=== PATIENT | male | born 1965 | race Caucasian/White ===

== ENCOUNTER 2018-03-01 11:04 | Emergency (ER) | payer OTHER ==
[~2018-03-01] VITALS: Ht 167.6 cm; Wt 90.0 kg
[~2018-03-01 11:04] MED LIST: MUPI1OIN8 BOTHNARES
[2018-03-01 11:46] LABS: ALANINE AMINOTRANSFERASE 60 U/L (12-78); ALBUMIN 3.9 G/DL (3.4-5.0); ALKALINE PHOSPHATASE 104 IU/L (46-116); ANION GAP 10 (8-16); ASPARTATE AMINO TRANSFERASE 31 U/L (10-37); BILIRUBIN,TOTAL 0.5 MG/DL (0.1-1.0); BLOOD UREA NITROGEN 26 MG/DL (7-18); BUN/CREATININE RATIO 25.7 (5.4-32.0); CHLORIDE 101 MMOL/L (99-107); CREATININE 1.01 MG/DL (0.60-1.10); GLUCOSE 271 MG/DL (70-104); POTASSIUM 4.4 MMOL/L (3.5-5.1); SODIUM 137 MMOL/L (135-145); TOTAL CARBON DIOXIDE 25.9 MMOL/L (24-32); TOTAL PROTEIN 7.9 G/DL (6.4-8.2); eGFR 78 ML/MIN
[2018-03-01 11:48] LABS: BASOPHILS % (AUTO) 0.3 % (0-1); EOSINOPHILS # (AUTO) 0.1 X10'3 (0-0.9); EOSINOPHILS % (AUTO) 0.9 % (0-6); HEMATOCRIT 48.6 % (42.0-52.0); HEMOGLOBIN 16.7 g/dl (14.0-17.9); LYMPHOCYTES # (AUTO) 1.9 X10'3 (1.1-4.8); LYMPHOCYTES % (AUTO) 22.9 % (21-51); MEAN CORPUSCULAR HEMOGLOBIN 29.5 PG (27.0-31.0); MEAN CORPUSCULAR HGB CONC 34.3 % (33.0-36.5); MEAN CORPUSCULAR VOLUME 85.9 FL (78-98); MEAN PLATELET VOLUME 8.1 FL (7.4-10.4); MONOCYTES # (AUTO) 0.8 X10'3 (0-0.9); MONOCYTES % (AUTO) 10.2 % (2-12); NEUTROPHILS # (AUTO) 5.4 X10'3 (1.8-7.7); NEUTROPHILS % (AUTO) 65.7 % (42-75); PLATELET COUNT 218 X10'3 (140-440); RED BLOOD COUNT 5.65 X10'6 (4.70-6.10); RED CELL DISTRIBUTION WIDTH 14.4 % (11.5-14.5); WHITE BLOOD COUNT 8.1 X10'3 (4.5-11.0)
[2018-03-01 11:59] LABS: PARTIAL THROMBOPLASTIN TIME 26 SECONDS (22-32)
[2018-03-01 12:00] LABS: LIPASE 122 U/L (73-393)
[2018-03-01 12:44] VITALS: BP 152/101
== END 2018-03-01 12:46 | disposition home or self-care (01) ==
LOC: ER 11:04 → EEVIPCON 11:04 → ER 12:46
DX: R07.9 Chest pain, unspecified (principal); R42 Dizziness and giddiness; R11.0 Nausea; I10 Essential (primary) hypertension; E11.9 Type 2 diabetes mellitus without complications; Z88.1 Allergy status to other antibiotic agents; Z79.899 Other long term (current) drug therapy
CPT/HCPCS: 36415; 71045; 80053; 83690; 84484; 85025; 85610; 85730; 93005; 99285

== ENCOUNTER 2020-02-26 14:36 | Inpatient (IN) | payer MEDICAID, OTHER ==
[~2020-02-26] VITALS: Ht 170.2 cm; Wt 96.5 kg
[2020-02-26] MEDS ORDERED: ondansetron/PF 4mg/2ml inj IV ONE (15:10)
[2020-02-26] MEDS ORDERED: normal saline 1000ML IV soln IVB ONE (15:10)
[2020-02-26] MEDS ORDERED: morphine 4 MG/ML inj SYRINge IV ONE (15:10)
[2020-02-26 15:13] LABS: BASOPHILS # (AUTO) 0.1 X10'3 (0-0.2); BASOPHILS % (AUTO) 1.1 % (0-1); EOSINOPHILS # (AUTO) 0.2 X10'3 (0-0.9); EOSINOPHILS % (AUTO) 1.9 % (0-6); HEMATOCRIT 44.3 % (42.0-52.0); HEMOGLOBIN 15.1 g/dl (14.0-17.9); LYMPHOCYTES % (AUTO) 25.6 % (21-51); MEAN CORPUSCULAR HEMOGLOBIN 28.9 PG (27.0-31.0); MEAN CORPUSCULAR HGB CONC 34.1 g/dL (33.0-36.5); MEAN CORPUSCULAR VOLUME 84.6 FL (78-98); MEAN PLATELET VOLUME 7.9 FL (7.4-10.4); MONOCYTES # (AUTO) 0.8 X10'3 (0-0.9); MONOCYTES % (AUTO) 9.8 % (2-12); NEUTROPHILS # (AUTO) 4.9 X10'3 (1.8-7.7); NEUTROPHILS % (AUTO) 61.6 % (42-75); PLATELET COUNT 206 X10'3 (140-440); RED BLOOD COUNT 5.23 X10'6 (4.70-6.10); RED CELL DISTRIBUTION WIDTH 14.2 % (11.5-14.5)
[2020-02-26 15:27] LABS: ALANINE AMINOTRANSFERASE 28 U/L (12-78); ALBUMIN 3.7 G/DL (3.4-5.0); ALBUMIN/GLOBULIN RATIO 0.9 (1.1-1.5); ALKALINE PHOSPHATASE 104 IU/L (46-116); ANION GAP 10 (8-16); ASPARTATE AMINO TRANSFERASE 18 U/L (10-37); BILIRUBIN,TOTAL 0.6 MG/DL (0.1-1.0); BLOOD UREA NITROGEN 17 MG/DL (7-18); BUN/CREATININE RATIO 13.2 (5.4-32.0); CALCIUM 8.8 MG/DL (8.5-10.1); CHLORIDE 105 MMOL/L (99-107); CREATININE 1.29 MG/DL (0.60-1.10); GLUCOSE 316 MG/DL (70-104); POTASSIUM 3.4 MMOL/L (3.5-5.1); SODIUM 138 MMOL/L (135-145); TOTAL CARBON DIOXIDE 22.6 MMOL/L (24-32); TOTAL PROTEIN 7.7 G/DL (6.4-8.2); eGFR 58 ML/MIN
[2020-02-26 15:35] LABS: LIPASE 75 U/L (73-393)
[2020-02-26] MEDS ORDERED: diphenhydrAMINE 50 mg/ml inj IV STA (15:54)
[2020-02-26] MEDS ORDERED: aspirin 81mg tab.chew PO ONE (16:30)
[2020-02-26] MEDS ORDERED: nitroGLYCERIN 0.4mg/hour patch TD ONE (16:30)
[2020-02-26] MEDS ORDERED: TADA5TAB13 PO (16:42)
[2020-02-26] MEDS ORDERED: GLIM4TAB7 PO (16:42)
[2020-02-26] MEDS ORDERED: dextrose ORAL solution 15 GM/59 ML bottle PO PRN ×2 (17:20)
[2020-02-26] MEDS ORDERED: dextrose 50%-water 50ml dispensing syringe IV PRN ×2 (17:20)
[2020-02-26] MEDS ORDERED: MESSAGE TO PHARMACY PO ONE (17:20)
[2020-02-26] MEDS ORDERED: insulin Lispro (HumaLOG) vial - multi-dose SQ SCH (17:20)
[2020-02-26] MEDS ORDERED: glucagon, human recombinant 1mg kit SUBCUT PRN (17:20)
[2020-02-26 17:51] LABS: HEMOGLOBIN A1C 9.2 % (4.5-6.2)
[2020-02-26] MEDS: normal saline 1000ml 1,000 ML IV SCH (18:35)
[2020-02-26] MEDS ORDERED: normal saline 1000ml 1,000 ML IV SCH (20:43)
[2020-02-26] MEDS ORDERED: potassium Cl 20 mEq SR tablet PO PRN ×2 (20:45)
[2020-02-26] MEDS ORDERED: morphine 2 MG/ML inj. syringe IV PRN (20:45)
[2020-02-26] MEDS ORDERED: mag hydrox/Alum hydrox/simeth 30ml oral suspension PO PRN (20:45)
[2020-02-26] MEDS ORDERED: acetaminophen 325mg tablet PO PRN (20:45)
[2020-02-26] MEDS ORDERED: magnesium 2GM in 50ml NS 50 ML IV PRN (20:45)
[2020-02-26] MEDS ORDERED: magnesium 4gm in 100ml NS 100 ML IV PRN (20:45)
[2020-02-26] MEDS ORDERED: magnesium hydroxide 30ml (MOM) UD suspension PO PRN (20:45)
[2020-02-26] MEDS ORDERED: potassium CL 10mEq/100ml bag 100 ML IV PRN ×2 (20:45)
[2020-02-26] MEDS ORDERED: magnesium Cl slow-release 64mg tablet PO PRN (20:45)
[2020-02-26] MEDS ORDERED: ondansetron/PF 4mg/2ml inj IV PRN (20:45)
[2020-02-26] MEDS ORDERED: enoxaparin 100mg/ml syringe SUBCUT ONE (20:50)
[2020-02-26] MEDS: insulin glargine (Lantus) pen - multi-dose SQ SCH (21:00)
--- NOTE | 2020-02-27 01:30 | NUR ---
Patient in room ED 3. I have received report from Cap RN and had the opportunity to ask questions and assume patient care.
[2020-02-27 02:15] VITALS: BP 113/71
--- NOTE | 2020-02-27 02:27 | NUR ---
PAGER ID: [phone] MESSAGE: Bob Jones [phone]: Patient is reporting pain. Only med for pain is IV morphine which made him break out in the ER. Can we DC morphine and start norco? -Samina BRENNER [phone]
--- NOTE | 2020-02-27 02:28 | NUR ---
Patient refused MRSA swab
[2020-02-27 03:26] LABS: ALANINE AMINOTRANSFERASE 27 U/L (12-78); ALBUMIN 3.1 G/DL (3.4-5.0); ALBUMIN/GLOBULIN RATIO 0.9 (1.1-1.5); ALKALINE PHOSPHATASE 84 IU/L (46-116); ANION GAP 7 (8-16); ASPARTATE AMINO TRANSFERASE 19 U/L (10-37); BILIRUBIN,TOTAL 0.8 MG/DL (0.1-1.0); BLOOD UREA NITROGEN 16 MG/DL (7-18); CALCIUM 7.9 MG/DL (8.5-10.1); CHLORIDE 110 MMOL/L (99-107); CREATININE 1.07 MG/DL (0.60-1.10); GLUCOSE 216 MG/DL (70-104); POTASSIUM 3.5 MMOL/L (3.5-5.1); SODIUM 141 MMOL/L (135-145); TOTAL CARBON DIOXIDE 24.1 MMOL/L (24-32); TOTAL PROTEIN 6.4 G/DL (6.4-8.2); eGFR 73 ML/MIN
[2020-02-27 03:29] LABS: BASOPHILS # (AUTO) 0.1 X10'3 (0-0.2); BASOPHILS % (AUTO) 0.7 % (0-1); EOSINOPHILS # (AUTO) 0.3 X10'3 (0-0.9); EOSINOPHILS % (AUTO) 3.4 % (0-6); HEMATOCRIT 41.1 % (42.0-52.0); HEMOGLOBIN 14.2 g/dl (14.0-17.9); LYMPHOCYTES # (AUTO) 1.8 X10'3 (1.1-4.8); LYMPHOCYTES % (AUTO) 19.7 % (21-51); MAGNESIUM 1.8 MG/DL (1.5-2.4); MEAN CORPUSCULAR HEMOGLOBIN 29.9 PG (27.0-31.0); MEAN CORPUSCULAR HGB CONC 34.5 g/dL (33.0-36.5); MEAN CORPUSCULAR VOLUME 86.7 FL (78-98); MEAN PLATELET VOLUME 8.2 FL (7.4-10.4); MONOCYTES # (AUTO) 0.8 X10'3 (0-0.9); MONOCYTES % (AUTO) 8.3 % (2-12); NEUTROPHILS # (AUTO) 6.3 X10'3 (1.8-7.7); NEUTROPHILS % (AUTO) 67.9 % (42-75); PLATELET COUNT 172 X10'3 (140-440); RED BLOOD COUNT 4.74 X10'6 (4.70-6.10); RED CELL DISTRIBUTION WIDTH 14.2 % (11.5-14.5); WHITE BLOOD COUNT 9.3 X10'3 (4.5-11.0)
[2020-02-27] MEDS: HYDROcodone/acetaminophen 5mg/325mg tablet PO PRN ×3 (04:00→17:14)
--- NOTE | 2020-02-27 06:07 | NUR ---
Problems reprioritized. Patient report given, questions answered & plan of care reviewed with Destini BRENNER.
--- NOTE | 2020-02-27 06:18 | NUR ---
Patient in room PCU 3019. I have received report from Samina BRENNER and had the opportunity to ask questions and assume patient care.
--- NOTE | 2020-02-27 06:21 | NUR ---
Patient in room PCU 3019. I have received report from Samina BRENNER and had the opportunity to ask questions and assume patient care. Patient was resting comfortably during report.
[2020-02-27 06:30] VITALS: BP 120/68
[2020-02-27] MEDS: K and/or MAG REPLACEMENT MC SCH ×2 (06:45→20:00)
[2020-02-27] MEDS: aspirin 81mg tab.chew PO SCH (08:10)
[2020-02-27] MEDS: atorvastatin 10mg tablet PO SCH (08:10)
[2020-02-27 11:00] VITALS: BP 121/79
[2020-02-27] MEDS: normal saline 1000ml 1,000 ML IV SCH ×2 (13:20→23:31)
--- NOTE | 2020-02-27 13:21 | NUR ---
Judith RAMOS PAGER ID: [phone] MESSAGE: Destini CID. RE Katja Jones 3019. Do you want patient to still be NPO? Patient is asking for more to eat/drink and wanted to confirm plan with you
--- NOTE | 2020-02-27 14:06 | NUR ---
DM consult: Pt with T2DM, current A1c is 9.2%. Pt admit with c/o CP and epigastric pain, poor historian at the time of admit per H&P. Written DM education and RD contact information placed in patient's chart. Will remain available. Addendum: 02/27/20 at [address] Amended: Links added.
[2020-02-27 15:00] VITALS: BP 117/74
--- NOTE | 2020-02-27 16:55 | NUR ---
Judith RAMOS PAGER ID: [phone] MESSAGE: Destini CID. RE Katja Jones 3019. Patient continuing to ask to eat, complaining of still being NPO. Can I feed patient?
[2020-02-27] MEDS ORDERED: regadenoson 0.4mg/5ml syringe IV PRN (17:00)
--- NOTE | 2020-02-27 18:30 | NUR ---
Problems reprioritized. Patient report given, questions answered & plan of care reviewed with Samanta BRENNER.
[2020-02-27 19:00] VITALS: BP 120/65
[2020-02-27] MEDS ORDERED: aminophylline 250mg/10ml inj. IV PRN (19:50)
[2020-02-27] MEDS ORDERED: metoprolol tartrate 1mg/ml inj IV PRN (19:50)
[2020-02-27] MEDS ORDERED: regadenoson 0.4mg/5ml syringe IV ONE (19:50)
[2020-02-27] MEDS ORDERED: nitroGLYCERIN 0.4mg SUBLingual tab SL PRN (19:50)
[2020-02-27] MEDS: insulin glargine (Lantus) pen - multi-dose SQ SCH (21:00)
[2020-02-27 23:00] VITALS: BP 108/67
[2020-02-28] VITALS (9 sets, daily range): BP systolic 93–148; BP diastolic 47–82
[2020-02-28 05:22] LABS: BASOPHILS % (AUTO) 0.5 % (0-1); EOSINOPHILS # (AUTO) 0.2 X10'3 (0-0.9); EOSINOPHILS % (AUTO) 2.1 % (0-6); HEMOGLOBIN 13.5 g/dl (14.0-17.9); LYMPHOCYTES # (AUTO) 1.8 X10'3 (1.1-4.8); LYMPHOCYTES % (AUTO) 19.2 % (21-51); MEAN CORPUSCULAR HEMOGLOBIN 28.7 PG (27.0-31.0); MEAN CORPUSCULAR HGB CONC 33.6 g/dL (33.0-36.5); MEAN CORPUSCULAR VOLUME 85.4 FL (78-98); MEAN PLATELET VOLUME 8.2 FL (7.4-10.4); MONOCYTES # (AUTO) 1.1 X10'3 (0-0.9); MONOCYTES % (AUTO) 11.7 % (2-12); NEUTROPHILS # (AUTO) 6.2 X10'3 (1.8-7.7); NEUTROPHILS % (AUTO) 66.5 % (42-75); PLATELET COUNT 166 X10'3 (140-440); RED BLOOD COUNT 4.69 X10'6 (4.70-6.10); RED CELL DISTRIBUTION WIDTH 13.9 % (11.5-14.5); WHITE BLOOD COUNT 9.3 X10'3 (4.5-11.0)
[2020-02-28 05:42] LABS: ALANINE AMINOTRANSFERASE 22 U/L (12-78); ALBUMIN 2.8 G/DL (3.4-5.0); ALBUMIN/GLOBULIN RATIO 0.8 (1.1-1.5); ALKALINE PHOSPHATASE 77 IU/L (46-116); ANION GAP 8 (8-16); ASPARTATE AMINO TRANSFERASE 12 U/L (10-37); BILIRUBIN,TOTAL 0.9 MG/DL (0.1-1.0); BLOOD UREA NITROGEN 12 MG/DL (7-18); CALCIUM 7.5 MG/DL (8.5-10.1); CHLORIDE 106 MMOL/L (99-107); GLUCOSE 178 MG/DL (70-104); MAGNESIUM 1.7 MG/DL (1.5-2.4); POTASSIUM 3.6 MMOL/L (3.5-5.1); SODIUM 139 MMOL/L (135-145); TOTAL CARBON DIOXIDE 25.5 MMOL/L (24-32); TOTAL PROTEIN 6.4 G/DL (6.4-8.2); TROPONIN I 0.35 NG/ML (0.0-0.05); eGFR > 90 ML/MIN
--- NOTE | 2020-02-28 06:00 | NUR ---
Patient in room PCU 3019. I have received report from Samanta BRENNER and had the opportunity to ask questions and assume patient care.
--- NOTE | 2020-02-28 06:14 | NUR ---
Patient in room PCU 3019. I have received report from Samanta BRENNER and had the opportunity to ask questions and assume patient care.
[2020-02-28] MEDS: HYDROcodone/acetaminophen 5mg/325mg tablet PO PRN (07:09)
[2020-02-28] MEDS: atorvastatin 10mg tablet PO SCH (07:09)
[2020-02-28] MEDS: aspirin 81mg tab.chew PO SCH (07:10)
[2020-02-28] MEDS: K and/or MAG REPLACEMENT MC SCH (08:00)
--- NOTE | 2020-02-28 08:13 | NUR ---
PAGER ID: [phone] MESSAGE: Re: Bob Jones. Room: 3019. Sandi scan canceled due to Pt's elevated troponins. -Isaías [facility] #[id number] Dr. Montero paged concerning Pt's sandi scan
--- NOTE | 2020-02-28 09:30 | NUR ---
Pt taken down to [facility] for taco scan.
[2020-02-28] MEDS ORDERED: ATOR10TA PO (11:07)
[2020-02-28] MEDS ORDERED: NITR0.4T51 SL (11:07)
--- NOTE | 2020-02-28 13:05 | NUR ---
Paged Dr. Montero PAGER ID: [phone] MESSAGE: [id number]. Bob Jones. Yanely Nelson report completed. Thank you. Pablo BRENNER [phone]
--- NOTE | 2020-02-28 14:28 | NUR ---
Paged Dr. Montero for DC PAGER ID: [phone] MESSAGE: [id number]. Bob Jones. [facility] is requesting Medical Clearance stating that the patient is okayed to be booked at the [facility] in order to DC. Pablo BRENNER [phone]
--- NOTE | 2020-02-28 15:17 | NUR ---
PAGER ID: [phone] MESSAGE: Re: Bob Jones. Room: 3019. Pt ready to be transferred. Awaiting DC summary saying Pt is medically cleared. -[facility] #[id number] Dr. Montero paged
--- NOTE | 2020-02-28 15:59 | NUR ---
Pt DC patient is medically stable for DC/Booking per Dr. Montero. IV removed and cannula intact. patient was accompanied by the and was cuffed at the hands and feet. tele box received and given to the telegraphic typewriter repairer. all DC paperwork given to the . DC education provided to the patient. wheel patient out of the hospital to the [facility] van.
--- NOTE | 2020-02-28 16:00 | NUR ---
Orientee documentation: I have reviewed and agree with all interventions, assessments performed and documented by Pablo Yeboah.
== END 2020-02-28 15:51 | DRG 313 ==
LOC: ER 14:36 → ED HOLD 20:43 → OBSVTOIN 20:43 → EEVIPCON 20:43 → PCU 3S 02-27 02:00
PROVIDERS: ADMIT Family Medicine; ATTEND Family Medicine
PROC: 4A02XM4 Measurement of Cardiac Total Activity, External Approach (ICD-10-PCS; principal; 2020-02-28)
PROC: 3E033HZ Introduction of Radioactive Substance into Peripheral Vein, Percutaneous Approach (ICD-10-PCS; 2020-02-28)
DX: R07.89 Other chest pain (principal); N17.0 Acute kidney failure with tubular necrosis; K86.1 Other chronic pancreatitis; E11.9 Type 2 diabetes mellitus without complications; F12.90 Cannabis use, unspecified, uncomplicated; F17.210 Nicotine dependence, cigarettes, uncomplicated; I10 Essential (primary) hypertension; Z79.84 Long term (current) use of oral hypoglycemic drugs
CPT/HCPCS: 36415; 71045; 78452; 80053; 82948; 83036; 83690; 83735; 83880; 84484; 85025; 87081; 93005; 93017; 96361; 96374; 96375; 99285; A9500; G0378; J1200; J1650; J1815; J2270; J2405; J2785; J7030